=== PATIENT | male | born 1970 | race Caucasian/White ===

== ENCOUNTER 2017-07-26 11:45 | Emergency (ER) | payer OTHER ==
[2017-07-26] MEDS ORDERED: KETOROLAC 60 MG/2 ML VIAL IVP STA (12:15)
--- NOTE | 2017-07-26 12:24 | ED ---
General Adult HPI - General Chief complaint: Back Pain/Injury Stated complaint: back, poss kidney pain Time Seen by Provider: 07/26/17 12:10 Source: patient, RN notes reviewed Mode of arrival: ambulatory Limitations: no limitations - History of Present Illness Initial comments: This is a 47-year-old male who presents emergency Department complaining that he woke up at 11:00 and had severe right-sided back and flank pain. Patient states it hurts to move. Patient states he went to bed last night he had no issues prior to going to bed. Patient states she woke up early this morning at 6 AM and had no problems. Patient states he doesn't recall injuring he was doing some work that involved him doing a lot of pulling which was not normal something he would do. Patient denies any abdominal pain patient denies nausea vomiting diarrhea. Patient denies any recent fever chills or cough. Patient denies any blunt trauma to the area. Patient denies any chest pain palpitations difficult breathing or shortness of breath. Patient denies any other problems at this time. - Related Data Previous Rx's Medication Instructions Recorded Cyclobenzaprine [Flexeril] 10 mg PO TID #20 tab 07/26/17 Hydrocodone/Acetaminophen [[place] 1 each PO Q6HR PRN #10 tab 07/26/17 5-325] Ibuprofen [Motrin] 600 mg PO Q6HR PRN #20 tab 07/26/17 Allergies Allergy/AdvReac Type Severity Reaction Status Date / Time No Known Allergies Allergy Verified 07/26/17 12:31 Review of Systems ROS Statement: Those systems with pertinent positive or pertinent negative responses have been documented in the HPI. ROS Other: All systems not noted in ROS Statement are negative. Past Medical History Additional Past Medical History / Comment(s): hepatitis C History of Any Multi-Drug Resistant Organisms: None Reported Past Surgical History: No Surgical Hx Reported Past Psychological History: No Psychological Hx Reported Smoking Status: Never smoker Past Alcohol Use History: Daily Past Drug Use History: Methamphetamine General Exam - General Exam Comments Initial Comments: GENERAL: Patient is well-developed and well-nourished. Patient is nontoxic and well- hydrated and is in mild distress. ENT: Neck is soft and supple. No significant lymphadenopathy is noted. Oropharynx is clear. Moist mucous membranes. Neck has full range of motion without eliciting any pain. EYES: The sclera were anicteric and conjunctiva were pink and moist. Extraocular movements were intact and pupils were equal round and reactive to light. Eyelids were unremarkable. PULMONARY: Unlabored respirations. Good breath sounds bilaterally. No audible rales rhonchi or wheezing was noted. CARDIOVASCULAR: There is a regular rate and rhythm without any murmurs gallops or rubs. ABDOMEN: Soft and nontender with normal bowel sounds. No palpable organomegaly was noted. There is no palpable pulsatile mass. SKIN: Skin is clear with no lesions or rashes and otherwise unremarkable. NEUROLOGIC: Patient is alert and oriented x3. Cranial nerves II through XII are grossly intact. Motor and sensory are also intact. Normal speech, volume and content. Symmetrical smile. MUSCULOSKELETAL: She was exquisitely tender in the right lower back and around the flank slightly. There is no swelling no redness. PSYCHIATRIC: Normal psychiatric evaluation. Limitations: no limitations Course Vital Signs 07/26/17 07/26/17 07/26/17 12:10 13:30 14:00 Temperature 99.9 F H 98.2 F Pulse Rate 99 74 68 Respiratory 20 17 16 Rate Blood Pressure 142/93 141/88 136/87 O2 Sat by Pulse 97 96 99 Oximetry 07/26/17 15:03 Temperature Pulse Rate 77 Respiratory 16 Rate Blood Pressure 142/92 O2 Sat by Pulse 97 Oximetry Medical Decision Making - Medical Decision Making Chest x-ray shows no acute abnormality. Patient received Toradol helped his pain a little I gave the patient some Valium and Dilaudid and it helped his pain considerably. - Lab Data Result diagrams: 07/26/17 12:20 07/26/17 12:20 Lab Results 07/26/17 07/26/17 07/26/17 Range/Units 12:20 12:20 12:30 WBC 7.2 (3.8-10.6) k/uL RBC 5.02 (4.30-5.90) m/uL Hgb 16.7 (13.0-17.5) gm/dL Hct 48.7 (39.0-53.0) % MCV 97.1 (80.0-100.0) fL MCH 33.2 (25.0-35.0) pg MCHC 34.2 (31.0-37.0) g/dL RDW 13.7 (11.5-15.5) % Plt Count 190 (150-450) k/uL Neutrophils % 58 % Lymphocytes % 25 % Monocytes % 9 % Eosinophils % 5 % Basophils % 1 % Neutrophils # 4.2 (1.3-7.7) k/uL Lymphocytes # 1.8 (1.0-4.8) k/uL Monocytes # 0.6 (0-1.0) k/uL Eosinophils # 0.3 (0-0.7) k/uL Basophils # 0.1 (0-0.2) k/uL Sodium 141 (137-145) mmol/L Potassium 4.0 (3.5-5.1) mmol/L Chloride 108 H (98-107) mmol/L Carbon Dioxide 21 L (22-30) mmol/L Anion Gap 12 mmol/L BUN 8 L (9-20) mg/dL Creatinine 0.64 L (0.66-1.25) mg/dL Est GFR (MDRD) Af Amer >60 (>60 ml/min/1.73 sqM) Est GFR (MDRD) Non-Af >60 (>60 ml/min/1.73 sqM) Glucose 98 (74-99) mg/dL Calcium 9.1 (8.4-10.2) mg/dL Total Bilirubin 0.3 (0.2-1.3) mg/dL AST 75 H (17-59) U/L ALT 103 H (21-72) U/L Alkaline Phosphatase 55 (38-126) U/L Total Protein 8.1 (6.3-8.2) g/dL Albumin 4.3 (3.5-5.0) g/dL Urine Color Yellow Urine Appearance Clear (Clear) Urine pH 5.5 (5.0-8.0) Ur Specific [place] 1.008 (1.001-1.035) Urine Protein Negative (Negative) Urine Glucose (UA) Negative (Negative) Urine Ketones Negative (Negative) Urine Blood Negative (Negative) Urine Nitrite Negative (Negative) Urine Bilirubin Negative (Negative) Urine Urobilinogen <2.0 (<2.0) mg/dL Ur Leukocyte Esterase Negative (Negative) Urine Opiates Screen Not Detected (NotDetected) Ur Oxycodone Screen Not Detected (NotDetected) Urine Methadone Screen Not Detected (NotDetected) Ur Propoxyphene Screen Not Detected (NotDetected) Ur Barbiturates Screen Not Detected (NotDetected) U Tricyclic Antidepress Not Detected (NotDetected) Ur Phencyclidine Scrn Not Detected (NotDetected) Ur Amphetamines Screen Not Detected (NotDetected) U Methamphetamines Scrn Not Detected (NotDetected) U Benzodiazepines Scrn Not Detected (NotDetected) Urine Cocaine Screen Not Detected (NotDetected) U Marijuana (THC) Screen Detected H (NotDetected) Disposition Clinical Impression: Back strain Disposition: HOME SELF-CARE Instructions: Low Back Strain (ED) Prescriptions: Cyclobenzaprine [Flexeril] 10 mg PO TID #20 tab Hydrocodone/Acetaminophen [[place] 5-325] 1 each PO Q6HR PRN #10 tab PRN Reason: Pain Ibuprofen [Motrin] 600 mg PO Q6HR PRN #20 tab PRN Reason: For pain Referrals: None,Stated [Primary Care Provider] - 1-2 days Time of Disposition: 15:21
[2017-07-26 12:39] LABS: Basophils # (A) 0.1 k/uL (0-0.2); Basophils % (A) 1 %; CH 34.8; Eosinophils # (A) 0.3 k/uL (0-0.7); Eosinophils % (A) 5 %; HCT 48.7 % (39.0-53.0); HDW 2.44; HGB 16.7 gm/dL (13.0-17.5); Luc # (Auto) 0.26; Luc % (Auto) 4; Lymphocytes # (A) 1.8 k/uL (1.0-4.8); Lymphocytes % (A) 25 %; MCH 33.2 pg (25.0-35.0); MCHC 34.2 g/dL (31.0-37.0); MCV 97.1 fL (80.0-100.0); Mean Platelet Volume 7.4; Monocytes # (A) 0.6 k/uL (0-1.0); Monocytes % (A) 9 %; Neutrophils # (A) 4.2 k/uL (1.3-7.7); Neutrophils % (A) 58 %; RBC 5.02 m/uL (4.30-5.90); RDW 13.7 % (11.5-15.5); WBC 7.2 k/uL (3.8-10.6); WBC (Perox) 6.84
[2017-07-26 12:50] LABS: ALT 103 U/L (21-72); AST 75 U/L (17-59); Alkaline Phosphatase 55 U/L (38-126); Anion Gap 12 mmol/L; Blood Urea Nitrogen 8 mg/dL (9-20); Calcium 9.1 mg/dL (8.4-10.2); Carbon Dioxide 21 mmol/L (22-30); Chloride 108 mmol/L (98-107); Glucose 98 mg/dL (74-99); Non-African American GFR(MDRD) >60 (>60 ml/min/1.73 sqM); Sodium 141 mmol/L (137-145); Total Bilirubin 0.3 mg/dL (0.2-1.3); Total Protein 8.1 g/dL (6.3-8.2)
[2017-07-26 13:10] LABS: Appearance,Urine Clear (Clear); Bilirubin,Urine Negative (Negative); Glucose,Urine (UA) Negative (Negative); Ketones,Urine Negative (Negative); Leukocyte Esterase,Urine Negative (Negative); Nitrite,Urine Negative (Negative); PH, Urine 5.5 (5.0-8.0); Protein,Urine Negative (Negative); Specific Gravity,Urine 1.008 (1.001-1.035); UA Billing (MACRO vs. MICRO) CHEM; Urobilinogen,Urine <2.0 mg/dL (<2.0)
[2017-07-26 14:02] VITALS: RESP 16
[2017-07-26] MEDS ORDERED: DIAZEPAM 5 MG/ML 2 ML SYRINGE IVP STA (14:12)
[2017-07-26] MEDS ORDERED: DIAZEPAM 5 MG TAB PO STA (14:36)
[2017-07-26] MEDS ORDERED: ORPHENADRINE 30 MG/ML 2 ML VIAL IM STA (14:44)
[2017-07-26] MEDS ORDERED: HYDROmorphone 1 MG/ML 1 ML SYRINGE IVP STA (14:47)
[2017-07-26] MEDS ORDERED: ONDANSETRON 4 MG/2 ML VIAL IVP STA (14:48)
--- NOTE | 2017-07-26 15:19 | XR ---
EXAMINATION TYPE: XR chest 2V DATE OF EXAM: 07/26/2017 COMPARISON: NONE HISTORY: Difficulty in breathing progress order. Right-sided pain per patient. TECHNIQUE: Frontal and lateral views of the chest are obtained. FINDINGS: There is no focal air space opacity, pleural effusion, or pneumothorax seen. Underlying mi ld emphysematous change is not excluded with flattened hemidiaphragms noted on lateral view. The card iac silhouette size is within normal limits. There is old fracture deformity of the lateral left eigh th rib. IMPRESSION: No acute cardiopulmonary process.
[2017-07-26 15:33] VITALS: PULSE 74; TEMP 97.7
[2017-07-26 15:50] VITALS: BP 146/73
== END 2017-07-26 15:49 | disposition home or self-care (01) ==
LOC: EC 11:45
DX: S39.012A Strain of muscle, fascia and tendon of lower back, initial encounter (principal); Z53.8 Procedure and treatment not carried out for other reasons; X50.1XXA Overexertion from prolonged static or awkward postures, initial encounter; Y93.89 Activity, other specified
CPT/HCPCS: 99284; 96374; 96375 ×2; 96372; 36415; 80053; 85025; 81003; 80306; 71020; J2360; J2405; J1885; J1170

== ENCOUNTER → 2017-08-09 | Outpatient (CLI) | payer OTHER | END | disposition home or self-care (01) | LOC: RADCTMAIN 13:01 | PROVIDERS: ATTEND Internal Medicine | DX: Z53.9 Procedure and treatment not carried out, unspecified reason (principal) ==

== ENCOUNTER 2021-02-09 23:23 | Emergency (ER) | payer BC ==
[2021-02-09 23:44] VITALS: TEMP 99.3
--- NOTE | 2021-02-10 00:21 | XR ---
EXAMINATION TYPE: XR shoulder complete RT DATE OF EXAM: 02/10/2021 COMPARISON: NONE HISTORY: Pain TECHNIQUE: 3 views FINDINGS: I see no fracture nor dislocation. Glenohumeral joint is intact. The AC joint is intact. IMPRESSION: Negative right shoulder exam.
[2021-02-10] MEDS ORDERED: ACETAMINOPHEN TAB 500 MG TAB PO STA (00:41)
[2021-02-10] MEDS ORDERED: IBUPROFEN 600 MG STARTER PACK 4 TAB BTL PO STA (00:41)
[2021-02-10] MEDS ORDERED: IBUPROFEN 800 MG TAB PO STA (00:41)
--- NOTE | 2021-02-10 00:43 | ED ---
Upper Extremity HPI - General Chief Complaint: Extremity Injury, Upper Stated Complaint: Right Shoulder Pain Source: patient, RN notes reviewed, old records reviewed Mode of arrival: ambulatory Limitations: no limitations - History of Present Illness Initial Comments: This is a 42-year-old male presents today for evaluation of right shoulder pain. Shoulder pain then again maybe a work related injury. Likely repetitive 4 overUse injury. Patient is right-handed. right shoulder right arm. patient states the pain started last night has progressively gotten worse. MD Complaint: Injury to:: right, shoulder -: hour(s) Other Extremity Injury: Shoulder: Right Other Injuries: none Handedness: right Place: work Severity scale (1-10): 6 Improves With: none Worsens With: none Context: other (none) Associated Symptoms: denies other symptoms Treatments Prior to Arrival: other (none) - Related Data Previous Rx's Medication Instructions Recorded Cyclobenzaprine [Flexeril] 10 mg PO TID #20 tab 07/26/17 Hydrocodone/Acetaminophen [[place] 1 each PO Q6HR PRN #10 tab 07/26/17 5-325] Ibuprofen [Motrin] 600 mg PO Q6HR PRN #20 tab 07/26/17 Allergies Allergy/AdvReac Type Severity Reaction Status Date / Time No Known Allergies Allergy Verified 02/09/21 23:44 Review of Systems ROS Statement: Those systems with pertinent positive or pertinent negative responses have been documented in the HPI. ROS Other: All systems not noted in ROS Statement are negative. Past Medical History Additional Past Medical History / Comment(s): hepatitis C History of Any Multi-Drug Resistant Organisms: None Reported Past Surgical History: No Surgical Hx Reported Past Psychological History: No Psychological Hx Reported Smoking Status: Current every day smoker Past Alcohol Use History: Daily Past Drug Use History: Methamphetamine General Exam Limitations: no limitations General appearance: alert, in no apparent distress Head exam: Present: atraumatic, normocephalic, normal inspection Eye exam: Present: normal appearance, PERRL, EOMI. Absent: scleral icterus, conjunctival injection, periorbital swelling ENT exam: Present: normal exam, mucous membranes moist Neck exam: Present: normal inspection. Absent: tenderness, meningismus, lymphadenopathy Respiratory exam: Present: normal lung sounds bilaterally. Absent: respiratory distress, wheezes, rales, rhonchi, stridor Cardiovascular Exam: Present: regular rate, normal rhythm, normal heart sounds. Absent: systolic murmur, diastolic murmur, rubs, gallop, clicks GI/Abdominal exam: Present: soft, normal bowel sounds. Absent: distended, tenderness, guarding, rebound, rigid Extremities exam: Present: normal inspection, full ROM, normal capillary refill. Absent: tenderness, pedal edema, joint swelling, calf tenderness Back exam: Present: normal inspection Neurological exam: Present: alert, oriented X3, CN II-XII intact Psychiatric exam: Present: normal affect, normal mood Skin exam: Present: warm, dry, intact, normal color. Absent: rash Course Vital Signs 02/09/21 02/10/21 23:40 01:00 Temperature 99.3 F Pulse Rate 108 H 98 Respiratory 22 18 Rate Blood Pressure 159/89 147/79 O2 Sat by Pulse 95 98 Oximetry - Reevaluation(s) Reevaluation #1: Medical record is reviewed Patient symptoms are significantly improved Patient informed results and questions have been answered Patient encouraged to stretch and move shoulder, he is understanding Medical Decision Making - Medical Decision Making 50 male DEL with shoulder injury. Repetitive use injury, , x-rays negative. Patient can be discharged home - Radiology Data Radiology results: report reviewed (X-ray right shoulder is negative for traumatic injury), image reviewed Disposition Clinical Impression: Strain of shoulder, Right shoulder pain Disposition: HOME SELF-CARE Condition: Good Instructions (If sedation given, give patient instructions): Shoulder Sprain (ED), Shoulder Pain (ED) Is patient prescribed a controlled substance at d/c from ED?: No Referrals: None,Stated [Primary Care Provider] - 1-2 days
[2021-02-10 01:01] VITALS: BP 147/79; PULSE 98; RESP 18
== END 2021-02-10 01:01 | disposition home or self-care (01) ==
LOC: EC 23:23
DX: S46.911A Strain of unspecified muscle, fascia and tendon at shoulder and upper arm level, right arm, initial encounter (principal); F17.200 Nicotine dependence, unspecified, uncomplicated; F15.90 Other stimulant use, unspecified, uncomplicated; X58.XXXA Exposure to other specified factors, initial encounter
CPT/HCPCS: 99283

== ENCOUNTER → 2022-02-03 | Outpatient (CLI) | payer BC ==
[2022-02-03 18:03] LABS: Basophils # (A) 0.08 X 10*3/uL (0.00-0.10); Basophils % (A) 1.2 %; Eosinophils % (A) 4.4 %; HCT 43.5 % (39.6-50.0); HGB 14.5 g/dL (13.0-17.0); Immature Grans, Automated 0.1 %; Lymphocytes # (A) 1.91 X 10*3/uL (0.90-5.00); Lymphocytes % (A) 27.8 %; MCH 31.8 pg (27.0-32.0); MCHC 33.3 g/dL (32.0-37.0); MCV 95.4 fL (80.0-97.0); Mean Platelet Volume 10.9 fL (9.5-12.2); Monocytes # (A) 0.82 X 10*3/uL (0.20-1.00); Monocytes % (A) 11.9 %; NRBC Per 100 WBC 0 /100 WBCS (0.0-0.0); Neutrophils # (A) 3.75 X 10*3/uL (1.80-7.70); Neutrophils % (A) 54.6 %; Platelet Count 168 X 10*3/uL (140-440); RBC 4.56 X 10*6/uL (4.40-5.60); RDW 11.9 % (11.5-14.5); WBC 6.87 X 10*3/uL (4.50-10.00)
[2022-02-03 18:15] LABS: African American GFR (CKD) 115.9 (60.0-200.0); Albumin 4.3 g/dL (3.8-4.9); Albumin/Globulin Ratio 1.47 (1.60-3.17); Anion Gap 9.3 mmol/L (10.00-18.00); BUN/Creat Ratio 13.24 Ratio (12.00-20.00); Blood Urea Nitrogen 11.9 mg/dL (9.0-27.0); Calcium 9.3 mg/dL (8.7-10.3); Carbon Dioxide 24.9 mmol/L (20.0-27.5); Potassium 4.1 mmol/L (3.5-5.5); Total Bilirubin 0.4 mg/dL (0.30-1.20); Total Protein 7.3 g/dL (6.2-8.2)
[2022-02-03 18:34] LABS: Hepatitis B Surface Antigen Nonreactive (Nonreactive)
[2022-02-03 18:44] LABS: Alpha Fetoprotein, Tumor Mkr <1.82 ng/mL (0.00-7.90)
== END | disposition home or self-care (01) ==
LOC: LABWHC1 13:03
PROVIDERS: ATTEND Nurse Practitioner Family
DX: B18.2 Chronic viral hepatitis C (principal)
CPT/HCPCS: 36415; 80053; 82105; 85025; 86704; 87340; 87522

== ENCOUNTER → 2022-09-19 | Outpatient (CLI) | payer BC ==
[2022-09-19 14:27] LABS: Basophils # (A) 0.07 X 10*3/uL (0.00-0.10); Basophils % (A) 0.9 %; Eosinophils # (A) 0.25 X 10*3/uL (0.04-0.35); Eosinophils % (A) 3.2 %; HCT 38.8 % (39.6-50.0); HGB 13.3 g/dL (13.0-17.0); Immature Grans, Automated 0.3 %; Lymphocytes # (A) 3.22 X 10*3/uL (0.90-5.00); MCH 32.7 pg (27.0-32.0); MCHC 34.3 g/dL (32.0-37.0); MCV 95.3 fL (80.0-97.0); Mean Platelet Volume 11.1 fL (9.5-12.2); Monocytes # (A) 0.73 X 10*3/uL (0.20-1.00); Monocytes % (A) 9.3 %; NRBC Per 100 WBC 0 /100 WBCS (0.0-0.0); Neutrophils # (A) 3.56 X 10*3/uL (1.80-7.70); Neutrophils % (A) 45.3 %; Platelet Count 153 X 10*3/uL (140-440); RBC 4.07 X 10*6/uL (4.40-5.60); RDW 12.1 % (11.5-14.5); WBC 7.85 X 10*3/uL (4.50-10.00)
[2022-09-19 16:23] LABS: African American GFR (CKD) 101.3 (60.0-200.0); Albumin 4.6 g/dL (3.8-4.9); Anion Gap 8.9 mmol/L (10.00-18.00); BUN/Creat Ratio 14.7 Ratio (12.00-20.00); Blood Urea Nitrogen 14.7 mg/dL (9.0-27.0); Calcium 9.4 mg/dL (8.7-10.3); Carbon Dioxide 29.1 mmol/L (20.0-27.5); Globulin 2.3 g/dL (1.6-3.3); Non-African American GFR(CKD) 87.4 (60.0-200.0); Total Bilirubin 0.4 mg/dL (0.30-1.20); Total Protein 6.9 g/dL (6.2-8.2)
== END | disposition home or self-care (01) ==
LOC: LABWHC1 08:21
PROVIDERS: ATTEND Internal Medicine Gastroenterology
DX: B18.2 Chronic viral hepatitis C (principal)
CPT/HCPCS: 36415; 80053; 85025; 87522

== ENCOUNTER → 2023-03-16 | Outpatient (CLI) | payer BC ==
--- NOTE | 2023-03-16 09:00 | CTL ---
EXAMINATION TYPE: CT Low Dose Lung DATE OF EXAM ORDERED: 03/16/2023 HISTORY: Long-term tobacco use. Lung cancer screening CT DLP: 68.[address] CTDI: 1.80 mGy Automated exposure control for dose reduction was used. SCREENING VISIT: Baseline COMPARISON: None TECHNIQUE: Low dose computed tomography scan was performed through the chest at 1 mm thick sections a nd reconstructed images in multiple planes at 1 mm and [address] DIAGNOSTIC QUALITY: Satisfactory FINDINGS: LUNG NODULES: Present, detailed below: A few scattered small nodules. For reference, There is 4 x 3 mm right upper lobe nodule axial image 63. For reference there is elong ated 6 x 2 mm right lower lobe nodule axial image 192. Scattered small peripheral nodules in the righ t mid lung are noted. LUNGS: COPD: Severity: Mild Fibrosis: Severity: None Lymph nodes: None Other findings: None RIGHT PLEURAL SPACE: Effusion: None Calcification: None Thickening: None Pneumothorax: None LEFT PLEURAL SPACE: Effusion: None Calcification: None Thickening: None Pneumothorax: None HEART: Heart Size: Normal Coronary Calcification: None Pericardial Effusion: None OTHER FINDINGS: Upper abdomen: None Bony thorax: None Supraclavicular region: None Other: None IMPRESSION: Mild emphysematous change and a few scattered small nodules. No significant greater than [address] LUNG RAD AND CT CHEST RECOMMENDATION: Lung-Rad 2 Benign Appearance or Behavior: Continue annual sc reening with LDCT in 12 months. S Modifier (other clinically significant findings): None
== END | disposition home or self-care (01) ==
LOC: RADCTMAIN 06:35
PROVIDERS: ATTEND Family Medicine
DX: Z12.2 Encounter for screening for malignant neoplasm of respiratory organs (principal); F17.210 Nicotine dependence, cigarettes, uncomplicated; J43.9 Emphysema, unspecified; R91.8 Other nonspecific abnormal finding of lung field
CPT/HCPCS: 71271

== ENCOUNTER → 2023-03-21 | Outpatient (CLI) | payer BC ==
[2023-03-21 14:20] LABS: Basophils # (A) 0.08 X 10*3/uL (0.00-0.10); Eosinophils # (A) 0.28 X 10*3/uL (0.04-0.35); Eosinophils % (A) 3.5 %; HCT 44.3 % (39.6-50.0); HGB 15.3 g/dL (13.0-17.0); Immature Grans, Automated 0.3 %; Lymphocytes # (A) 1.82 X 10*3/uL (0.90-5.00); MCH 33.1 pg (27.0-32.0); MCHC 34.5 g/dL (32.0-37.0); MCV 95.9 fL (80.0-97.0); Mean Platelet Volume 11.2 fL (9.5-12.2); Monocytes # (A) 0.75 X 10*3/uL (0.20-1.00); Monocytes % (A) 9.5 %; NRBC Per 100 WBC 0 /100 WBCS (0.0-0.0); Neutrophils # (A) 4.96 X 10*3/uL (1.80-7.70); Neutrophils % (A) 62.7 %; Platelet Count 184 X 10*3/uL (140-440); RBC 4.62 X 10*6/uL (4.40-5.60); RDW 12.1 % (11.5-14.5); WBC 7.91 X 10*3/uL (4.50-10.00)
[2023-03-21 14:44] LABS: African American GFR (CKD) 105.1 (60.0-200.0); Albumin 4.5 g/dL (3.8-4.9); Anion Gap 7.8 mmol/L (10.00-18.00); BUN/Creat Ratio 15.26 Ratio (12.00-20.00); Blood Urea Nitrogen 14.8 mg/dL (9.0-27.0); Calcium 9.6 mg/dL (8.7-10.3); Carbon Dioxide 28.1 mmol/L (20.0-27.5); Globulin 2.3 g/dL (1.6-3.3); Non-African American GFR(CKD) 90.7 (60.0-200.0); Potassium 5.3 mmol/L (3.5-5.5); Total Bilirubin 0.4 mg/dL (0.30-1.20); Total Protein 6.8 g/dL (6.2-8.2)
--- NOTE | 2023-03-21 16:22 | CT ---
EXAMINATION TYPE: CT soft tissue neck w con DATE OF EXAM: 03/21/2023 COMPARISON: None HISTORY: right side neck painx1 year CT DLP: 444.3 mGycm CONTRAST: Patient injected with 100 mL of Isovue 300. TECHNIQUE: Axial images at 3 mm thick sections. Reconstructed images in the coronal plane and sagitt al plane are reviewed. FINDINGS: Limited CT sections are obtained the lung apices. The lung apices appear clear. CT neck: The torus tubarius and fossa of Rosenmuller are normal. Monitor Car Operator spaces are normal. Para nasal sinuses and mastoid air cells are clear. Parotid glands appear normal and symmetrical. Submandibular glands, are normal. Parapharyngeal spac es are normal. No suspicious adenopathy is evident. The hypopharynx appears within normal limits. Vocal cord level appear symmetrical. Thyroid as visualized is normal. C6-7 has loss of disc height. Uncovertebral joint hypertrophy is contributed to bilateral foraminal s tenosis. IMPRESSIONS: 1. Degenerative disc changes and foraminal narrowing bilaterally at C6-7 is present. Consider follow- up MRI and correlation for radiculopathy. 2. Etiology for right neck pain not otherwise identified.
== END | disposition home or self-care (01) ==
LOC: RADCTMAIN 08:00
PROVIDERS: ATTEND Family Medicine
DX: M50.123 Cervical disc disorder at C6-C7 level with radiculopathy (principal); R63.4 Abnormal weight loss; R01.1 Cardiac murmur, unspecified; M79.671 Pain in right foot
CPT/HCPCS: 87522; 80053; 85025; 70491; 36415; Q9967

== ENCOUNTER → 2023-04-17 | Outpatient (CLI) | payer BC ==
--- NOTE | 2023-04-17 10:58 | US ---
EXAMINATION TYPE: US abdomen complete DATE OF EXAM: 04/17/2023 COMPARISON: US CLINICAL INDICATION: Male, 52 years old with history of R63.4 M79.671 R01.1; Pt states generalized AB D pain, history of Hep C and ETOH abuse TECHNIQUE: Multiple sonographic images of the abdomen are obtained. FINDINGS: EXAM MEASUREMENTS: Liver Length: 15.8 cm Gallbladder Wall: 0.2 cm CBD: 0.3 cm Spleen: 9.5 cm Right Kidney: 12.5 x 3.8 x 5.5 cm Left Kidney: 11.8 x 5.2 x 5.1 cm SNOW BLOWER NOTES: Pancreas: wnl Liver: Heterogeneous, otherwise appeared wnl Gallbladder: wnl Evidence for sonographic Newman's sign: No CBD: wnl Spleen: wnl Right Kidney: wnl Left Kidney: wnl Upper IVC: wnl Abd Aorta: wnl The intrahepatic portion of the IVC and proximal abdominal aorta are within normal limits. There is no evidence of cholelithiasis. Common bile duct is unremarkable. The visualized portions of the dia creas are homogenous. The spleen is unremarkable. Kidneys are symmetric and free of hydronephrosis. No renal lesions are seen. IMPRESSION: Mild hepatic heterogeneity which could reflect hepatic steatosis. Otherwise unremarkable study.
[2023-04-17 12:25] LABS: Basophils # (A) 0.1 k/uL (0-0.2); Basophils % (A) 1 %; Eosinophils # (A) 0.3 k/uL (0-0.7); Eosinophils % (A) 4 %; HCT 43.2 % (39.0-53.0); HGB 14.4 gm/dL (13.0-17.5); Lymphocytes # (A) 3.1 k/uL (1.0-4.8); Lymphocytes % (A) 38 %; MCHC 33.2 g/dL (31.0-37.0); MCV 96.3 fL (80.0-100.0); Mean Platelet Volume 8.4; Monocytes # (A) 0.7 k/uL (0-1.0); Monocytes % (A) 9 %; Neutrophils # (A) 3.7 k/uL (1.3-7.7); Neutrophils % (A) 45 %; Platelet Count 142 k/uL (150-450); RBC 4.48 m/uL (4.30-5.90); RDW 12.5 % (11.5-15.5); WBC 8.2 k/uL (3.8-10.6)
[2023-04-17 12:51] LABS: RBC Morphology Normal
--- NOTE | 2023-04-18 12:39 | CA ---
Transthoracic Echo Report Name: Victor M Martinez Age: 52 Gender: M : 1970 Exam Date: 04/17/2023 13:07 Exam Location: [facility] Ht (in): 69 Wt (lb): 140 Ordering Physician: Beau Richard MD Attending/Referring Phys: Rosario Lombardo PAC Cartridge Feeder Bhavya Vazquez RDCS Procedure CPT: Indications: R01.1 Murmur Cardiac Hx: Technical Quality: Good Contrast 1: Total Dose (mL): Contrast 2: Total Dose (mL): MEASUREMENTS (Male / Female) Normal Values 2D ECHO LV Diastolic Diameter PLAX 4.1 cm 4.2 - 5.9 / 3.9 - 5.3 cm LV Systolic Diameter PLAX 2.7 cm IVS Diastolic Thickness 0.9 cm 0.6 - 1.0 / 0.6 - 0.9 cm LVPW Diastolic Thickness 1.1 cm 0.6 - 1.0 / 0.6 - 0.9 cm LV Relative Wall Thickness 0.5 RV Internal Dim ED PLAX 2.3 cm LA Systolic Diameter LX 3.1 cm 3.0 - 4.0 / 2.7 - 3.8 cm LV Diastolic Volume MOD 4C 100.4 cm??? LV Systolic Volume MOD 4C 40.3 cm??? LV Ejection Fraction MOD 4C 59.8 % LV Diastolic Length 4C 8.5 cm LV Systolic Length 4C 6.6 cm LV Diastolic Volume MOD 2C 107.1 cm??? LV Systolic Volume MOD 2C 42.5 cm??? LV Ejection Fraction MOD 2C 60.3 % LV Diastolic Length 2C 8.2 cm LV Systolic Length 2C 6.4 cm LA Volume 50.9 cm??? 18 - 58 / 22 - 52 cm??? M-MODE Aortic Root Diameter MM 3.8 cm MV E Point Septal Separation 0.5 cm AV Cusp Separation MM 2.4 cm DOPPLER AV Peak Velocity 148.1 cm/s AV Peak Gradient 8.8 mmHg MV Area PHT 2.5 cm??? Mitral E Point Velocity 92.3 cm/s Mitral A Point Velocity 55.1 cm/s Mitral E to A Ratio 1.7 MV Deceleration Time 302.0 ms MV E' Velocity 12.7 cm/s Mitral E to MV E' Ratio 7.3 FINDINGS Left Ventricle Left ventricular ejection fraction is estimated at 55-60 %. Left ventricular cavity size normal. Left ventricular wall thickness normal. Normal left ventricular wall motion. Right Ventricle Normal right ventricular size and function. Unable to estimate the right ventricular systolic pressure. Right Atrium Normal right atrial size. Left Atrium Normal left atrial size. Mitral Valve Structurally normal mitral valve. Mild mitral regurgitation. Aortic Valve Trileaflet aortic valve. No aortic valve stenosis or regurgitation. Tricuspid Valve Structurally normal tricuspid valve. No tricuspid regurgitation. Pulmonic Valve Structurally normal pulmonic valve. No pulmonic regurgitation. Pericardium Normal pericardium. No pericardial effusion. Aorta Mild aortic dilatation at the level of the sinuses of valsalva 38 mm CONCLUSIONS 1. Normal left ventricle size and function 2. Mild mitral regurgitation Previewed by: Dr. Mary Mcknight MD (Electronically Signed) Final Date: 18 April 2023 12:38
== END | disposition home or self-care (01) ==
LOC: RADUSWWP 10:10
PROVIDERS: ATTEND Family Medicine
DX: K76.89 Other specified diseases of liver (principal); M79.671 Pain in right foot; D72.829 Elevated white blood cell count, unspecified; R63.4 Abnormal weight loss; R01.1 Cardiac murmur, unspecified
CPT/HCPCS: 76700; 85025; 93306

== ENCOUNTER → 2023-10-03 | Outpatient (CLI) | payer BC | LOC: CPPFTMAIN 16:36 | PROVIDERS: ATTEND Family Medicine | DX: J44.9 Chronic obstructive pulmonary disease, unspecified (principal) | CPT/HCPCS: 94060; 94726; 94729 ==

== ENCOUNTER → 2023-11-27 | Outpatient (CLI) | payer BC ==
--- NOTE | 2023-11-27 12:02 | CT ---
EXAMINATION TYPE: CT ChestAbdPelvis w con DATE OF EXAM: 11/27/2023 INDICATION: Cirrhosis COMPARISON: 12/07/2012 CT DLP: 1226 mGycm CONTRAST: Performed with Oral Contrast and with IV Contrast, patient injected with 100 ml mL of Isovue 300. TECHNIQUE: Axial images at 5 mm thick sections. Reconstructed images in the coronal plane. Delayed images through the kidneys. FINDINGS: CT CHEST: Portion of the thyroid visualized is normal. No suspicious lung nodules or focal infiltrates are present. No enlarged mediastinal or hilar adenopathy is evident. The ascending aorta diameter at the level of the main pulmonary artery is 3.6 cm. The main pulmonary artery diameter at the bifurcation is 2.[address] ABDOMEN: Liver: No suspicious abnormality on these noncontrast images. No obvious masses. No biliary dilatatio n. Radiographic changes of cirrhosis are not evident. Spleen: Normal Pancreas: Normal Adrenal glands: The adrenal glands are normal. Gallbladder: Normal Kidneys: No masses are evident. No hydronephrosis is present. No cysts are present. Delayed images were obtained through the kidneys, couple of tiny cortical renal cysts may be evident on the delayed images. Aorta: Normal Inferior vena cava: Normal. CT PELVIS: Loops of bowel within the abdomen and pelvis are normal. There are loops of bowel which are incom pletely distended or lack oral contrast limiting their evaluation. Appendix: Not identified. No suspicious dilated tubular structure or inflammatory changes evident. Urinary bladder: Normal. Genitourinary structures: Prostate is prominent Osseous structures: No suspicious lytic or sclerotic lesions. IMPRESSION: 1. No suspicious hepatic changes evident. 2. Prominent prostate. 3. Couple of tiny cortical renal cysts present on delayed images.
== END | disposition home or self-care (01) ==
LOC: RADCTMAIN 09:00
PROVIDERS: ATTEND Internal Medicine Hematology & Oncology
DX: N28.1 Cyst of kidney, acquired (principal); K74.60 Unspecified cirrhosis of liver; J44.9 Chronic obstructive pulmonary disease, unspecified; E78.5 Hyperlipidemia, unspecified; R06.02 Shortness of breath
CPT/HCPCS: 71260; 74177; Q9967

== ENCOUNTER → 2024-04-05 | Outpatient (CLI) | payer BC ==
[2024-04-05 19:36] LABS: Basophils # (A) 0.08 X 10*3/uL (0.00-0.10); Basophils % (A) 0.9 %; Eosinophils # (A) 0.24 X 10*3/uL (0.04-0.35); Eosinophils % (A) 2.6 %; HGB 14.8 g/dL (13.0-17.0); Lymphocytes # (A) 2.69 X 10*3/uL (0.90-5.00); Lymphocytes % (A) 29.5 %; MCHC 34.4 g/dL (32.0-37.0); MCV 95.8 FL (80.0-97.0); Mean Platelet Volume 11.1 FL (9.5-12.2); Monocytes # (A) 0.91 X 10*3/uL (0.20-1.00); NRBC Per 100 WBC 0 X 10*3/uL (0.00-0.01); Neutrophils # (A) 5.17 X 10*3/uL (1.80-7.70); Neutrophils % (A) 56.7 %; Platelet Count 188 X 10*3/uL (140-440); RBC 4.49 X 10*6/uL (4.40-5.60); RDW 11.9 % (11.5-14.5); WBC 9.12 X 10*3/uL (4.50-10.00)
== END | disposition home or self-care (01) ==
LOC: LABWHC1 15:39
PROVIDERS: ATTEND Nurse Practitioner Family
DX: B18.2 Chronic viral hepatitis C (principal)
CPT/HCPCS: 36415; 85025

== ENCOUNTER → 2024-04-19 | Outpatient (CLI) | payer BC ==
[2024-04-19 17:43] LABS: Alpha Fetoprotein, Tumor Mkr <3.00 ng/mL (0.00-7.90)
== END | disposition home or self-care (01) ==
LOC: LABWHC1 09:50
PROVIDERS: ATTEND Nurse Practitioner Family
DX: B18.2 Chronic viral hepatitis C (principal)
CPT/HCPCS: 36415; 81596; 82105; 87522